=== PATIENT | female | born 1995 | race African-American/Black ===

== ENCOUNTER 2017-10-01 10:57 | Emergency (ER) | payer OTHER ==
[~2017-10-01] VITALS: Ht 162.6 cm; Wt 61.7 kg
[~2017-10-01 10:57] MED LIST: DEPO-PROVER150 MG/M1 IM; IBUPROFEN 400400 M1 PO; KEFLEX500 MG PO
[2017-10-01] MEDS ORDERED: AMOXICILLIN500 M1 PO (11:26)
== END 2017-10-01 11:39 | disposition home or self-care (01) ==
LOC: ER 10:57
DX: J02.0 Streptococcal pharyngitis (principal)